=== PATIENT | male | born 1990 | race Caucasian/White ===

== ENCOUNTER 2016-08-13 23:00 | Inpatient (IN) | payer OTHER ==
--- NOTE | ~2016-08-13 | DS ---
Unit #: [id number] #: [id number] Patient: [facility]AR [id number] [facility] [address] [place] [address] [id number] MR#: [id number] NAME: JESSICA SALDIVAR ROOM: [facility] Age: 25 Sex: M Admission Date: 08/14/2016 : 1990 Discharge Date: 08/18/2016 Attending Physician: Irineo Soni M.D. Primary Care Physician: Primary Care Physician No DISCHARGE SUMMARY REASON FOR ADMISSION Mr. Saldivar is a 25-year-old single white male who is a resident of [place], [place] and was self-referred to the hospital on voluntary basis. HISTORY OF PRESENT ILLNESS Please see initial psychiatric evaluation. PAST PSYCHIATRIC HISTORY Please see initial psychiatric evaluation. PAST MEDICAL HISTORY Please see initial psychiatric evaluation. HOSPITAL COURSE The patient was admitted to the adult psychiatric unit at [facility] reuben Drake and was oriented to the hospital environment. Routine p.r.n. medications were initiated and he was started back on his home medications and the Effexor and BuSpar were initiated to help with depression and anxiety and was closely monitored. He was taking the medications regularly and was tolerating them fairly well and was able to show a decent and therapeutic response with improvement in depression and anxiety and was willing to continue treatment on outpatient basis and was denying suicidal ideations, intent or plan and as such it was decided that she will be discharged home. Will continue treatment on outpatient basis. DISCHARGE DIAGNOSES PSYCHIATRIC: 1. Major depressive disorder, recurrent, moderate, without psychotic features. 2. Generalized anxiety disorder. MEDICAL: Diabetes mellitus. STRESSORS: Moderate psychosocial stressors. DISCHARGE MEDICATIONS 1. Effexor XR 75 mg daily for depression. 2. BuSpar 10 mg b.i.d. for anxiety. CONDITION AT DISCHARGE Stable. Unit #: [id number] #: [id number] Patient: JESSICA SALDIVAR PROGNOSIS Fair. Dictated by... Flako Bray/pee TD: 08/18/2016 16:37 JOB #: [id number] DISCHARGE SUMMARY Page 1 of 1 X Irineo Soni MD X DISCHARGE SUMMARY
--- NOTE | ~2016-08-13 | HP ---
Unit #: [id number] #: [id number] Patient: JESSICA PERES [id number] [place] [address] [id number] MR#: [id number] NAME: JESSICA PERES ROOM: [facility] Age: 25 Sex: M Admission Date: 08/14/2016 : 1990 Attending Physician: Irineo Soni M.D. Admitting Physician: Irineo Soni M.D. Primary Care Physician: Primary Care Physician No HISTORY AND PHYSICAL HISTORY OF PRESENT ILLNESS The patient is a 25-year-old male, admitted to [address] [place] [address] on 08/14/2016, for suicidal ideations. PAST MEDICAL HISTORY 1. Type 1 diabetes. 2. Diabetic neuropathy. PAST SURGICAL HISTORY The patient denies. SOCIAL HISTORY He has a history of alcohol and heroin use but denies any now. He is unemployed and homeless. He smokes [id number] cigarettes per day and uses marijuana on a daily basis for his diabetic neuropathy. FAMILY MEDICAL HISTORY Noncontributory. ALLERGIES No known drug allergies. CURRENT MEDICATIONS Include: 1. Levemir 2. Humulin 3. Gabapentin REVIEW OF SYSTEMS CONSTITUTIONAL: No fever or chills. HEENT: Denies any sore throat, ear pain or runny nose. CARDIOVASCULAR: Denies chest pain, irregular heart rhythm or palpitations. CHEST: Denies shortness of breath or cough. No hemoptysis. GASTROINTESTINAL: Denies nausea, vomiting, diarrhea or chronic constipation. ENDOCRINE: Denies history of increased thirst or urination. No recent significant weight loss or gain. GENITOURINARY: Denies dysuria, frequency, or hematuria. SKIN: Denies any rashes. HEMATOLOGIC: Denies history of increased bleeding or bruising. MUSCULOSKELETAL: Denies any hot, swollen joints. No generalized muscle pain. NEUROLOGIC: Denies problems with vision or speech. No frequent, severe Unit #: [id number] #: [id number] Patient: JESSICA PERES headaches. No numbness, tingling or weakness in any extremities. Denies loss of bladder or bowel control. PHYSICAL EXAMINATION GENERAL: Awake, alert, and oriented, in no acute distress. VITAL SIGNS: Temperature 98.6, heart rate 89, respirations 18, blood pressure 130/94. HEIGHT: 5 feet 10 inches. WEIGHT: 155 pounds. SKIN: Warm and dry without rash or lesion. HEENT: Normocephalic. TMs not viewed. Oral and nasal passages clear. Conjunctivae clear. PERRLA. EOMs intact. NECK: Supple without lymphadenopathy or thyromegaly. HEART: Regular rate and rhythm without murmur. LUNGS: Clear. ABDOMEN: Soft, nontender. : Not done. EXTREMITIES: No evidence of cyanosis, clubbing or edema. Moves all without focal deficit. NEUROLOGICAL: Grossly within normal limits. Cranial Nerves: II: Visual donovan are intact. III, IV AND : Extraocular movements are intact. Pupils are equal, round and reactive to light. V: Facial sensation is grossly normal. VII: Facial movements and expression are normal. VIII: Auditory acuity grossly intact. IX, X: Uvula is midline. Phonation is normal. XI: Patient shrugs shoulders and turns head normally. XII: Tongue protrudes in the midline. Sensory and Motor Function: Sensory and motor sensation is grossly normal. Motor: moves all extremities well. Coordination: Gait is normal. Deep Tendon Reflexes: Intact. IMPRESSION 1. Psychiatric admission. 2. Type 1 diabetes. 3. Neuropathy. RECOMMENDATIONS Psychiatric, per psychiatrist. MEDICAL No contraindications to participating in facility's activities. MEDICAL PROGNOSIS Fair. MEDICAL CONDITION Stable. Dictated by... Luis Leary/julian TD: 08/15/2016 05:15 JOB #: [id number] Unit #: [id number] #: [id number] Patient: JESSICA PERES HISTORY AND PHYSICAL Page 1 of 1 X HEIDI RAMSEY APRN X HISTORY AND PHYSICAL
--- NOTE | ~2016-08-13 | PA ---
Unit #: [id number] #: [id number] Patient: JESSICA SALDIVAR [id number] [facility] [address] [place] [address] [id number] MR#: [id number] NAME: JESSICA SALDIVAR ROOM: [facility] Age: 25 Sex: M Admission Date: 08/14/2016 : 1990 Date of Assessment: 08/14/2016 Attending Physician: Irineo Soni M.D. Admitting Physician: Irineo Soni M.D. Primary Care Physician: Primary Care Physician No PSYCHIATRIC ASSESSMENT DATE OF SERVICE 08/14/2016. IDENTIFYING DATA Mr. Saldivar is a 25-year-old single white male, who is a resident of [place], [place], and was self-referred to the hospital on a voluntary basis. CHIEF COMPLAINT "Depression and wanting to overdose on heroin." HISTORY OF PRESENT ILLNESS Mr. Saldivar is a 25-year-old white male with dual diagnosis of mood disorder, who was self-referred to the hospital reporting increasing depression, anxiety, feelings of hopelessness and helplessness, and suicidal ideations with a plan to overdose on heroin and reports that he left on his own on 08/05/2016 without his girlfriend or his children. He reports that he left due to depression and stress and has a history of alcohol abuse and his last drink was a couple of weeks ago and drinks a couple of beers and reports he has a history of heroin abuse. He reports that he was using half a gram of IV heroin on a daily basis and he has not used heroin in a year and a half and reports that he smoked or snorted half a gram of meth on a daily basis and reports last use was about a year and a half ago. However, he reports that he has been prescribed medical marijuana for diabetic neuropathy. He does report increasing depression, anxiety, irritability, feelings of hopelessness and helplessness, and suicidal ideations, and as such, a recommendation for inpatient level of care for safety and stabilization was made and the patient was transferred to us. SUBSTANCE ABUSE HISTORY The patient reports a history of experimentation and abuse of alcohol, cannabis, opioids, and methamphetamine, though he reports that he has not been using drugs for quite some time, though he did report some drinking, a couple of beers a couple of weeks ago. PAST PSYCHIATRIC HISTORY The patient has had a history of psychiatric treatment in the past, and review of the medical records indicate currently he is not active in any treatment program, is not seeing a psychiatrist, and is not taking any psychotropic medications. PAST MEDICAL HISTORY Unit #: [id number] #: [id number] Patient: JESSICA SALDIVAR Insulin-dependent diabetes mellitus. ALLERGIES No known medication allergies. PERSONAL AND SOCIAL HISTORY A 25-year-old white male, who reports that he is single, unemployed, essentially homeless and has poor social support system. MENTAL STATUS EXAMINATION Young white male, who was casually dressed with fair personal hygiene, appears to be in no acute distress or discomfort. He was awake and alert on interaction with intact orientation to time, place, and person. His mood was anxious and depressed with a congruent affect. His speech was slow and restricted in content. His thought processes were disorganized with some looseness of associations and flight of ideas and suicidal ideations. His insight and judgment remain significantly impaired. DIAGNOSTIC IMPRESSION Psychiatric: Major depressive disorder, recurrent, moderate, without psychotic features and generalized anxiety disorder. Medical: None. Stressors: Moderate psychosocial stressors. TREATMENT PLAN 1. The patient has presented with a history of mood disorder and has been decompensating and will need inpatient hospitalization for safety and stabilization. We will start him back on his home medications and we will adjust the medications and monitor response. 2. Supportive therapy was provided to the patient. 3. Safe, structured, and nourishing environment will be provided. ESTIMATED LENGTH OF STAY 5 to 7 days. ABILITY TO HELP SELF Limited. WILLINGNESS TO HELP SELF The patient appears to be willing to help self. STRENGTHS 1. Communicative. 2. Cooperative. PROBLEMS 1. Chronic dysphoric symptoms. 2. Poor social support system. DISCHARGE CRITERIA This will be contingent upon the patient's ability to show resolution of his depression and anxiety as well as his ability to stay safe to himself, particularly after discharge from the hospital. Dictated by... Irineo Soni M.D. Unit #: [id number] #: [id number] Patient: JESSICA SALDIVAR IAA/modl TD: 08/14/2016 14:05 JOB #: [id number] PSYCHIATRIC ASSESSMENT Page 1 of 1 X Irineo Soni MD PSYCHIATRIC ASSESSMENT
--- NOTE | ~2016-08-13 | PN ---
Unit #: [id number] #: [id number] Patient: JESSICA SALDIVAR [id number] [facility] [address] [place] [address] [id number] I MR#: [id number] NAME: JESSICA SALDIVAR ROOM: [facility] Age: 25 Sex: M Admission Date: 08/14/2016 : 1990 Attending Physician: Irineo Soni M.D. Admitting Physician: Irineo Soni M.D. Primary Care Physician: Primary Care Physician Daxa SOLORZANO NOTES DATE August 16, 2016 DISCUSSION Mr. Saldivar is a 25-year-old white male, who was seen today and chart was reviewed and the case was discussed with the staff. He has been anxious, withdrawn, and rather seclusive to himself. Meanwhile, he has been cooperative with the treatment recommendations and he has been taking the medications, and tolerating them fairly well, with no reported side effects. MENTAL STATUS EXAMINATION Young white male, who was casually dressed with fair personal hygiene and appears to be in no acute distress or discomfort. He was awake and alert with intact orientation. His mood was anxious with a congruent affect. He denies any suicidal or homicidal ideations. His insight and judgment remain slightly impaired. TREATMENT PLAN 1. We will continue him on his current medications and treatment protocol, and will monitor his response to the medications, and make further adjustments as needed. 2. We will continue to followup. Dictated by... Flako Bray/julian TD: 08/17/2016 08:55 JOB #: [id number] Unit #: [id number] #: [id number] Patient: JESSICA SALDIVAR PROGRESS NOTES Page 1 of 1 X Irineo Soni MD PROGRESS NOTE
--- NOTE | ~2016-08-13 | PN ---
Unit #: [id number] #: [id number] Patient: JESSICA SALDIVAR [id number] [facility] [address] [place] [address] [id number] MR#: [id number] NAME: JESSICA SALDIVAR ROOM: [facility] Age: 25 Sex: M Admission Date: 08/14/2016 : 1990 Attending Physician: Irineo Soni M.D. Admitting Physician: Irineo Soni M.D. Primary Care Physician: Primary Care Physician Daxa RIOS PROGRESS NOTES DATE 08/15/2016 DISCUSSION Mr. Saldivar is a 25-year-old, white male who was seen today and chart was reviewed and case was discussed with the staff. He has been anxious, withdrawn, depressed and rather seclusive to himself though he has been able to take the medication which he initiated yesterday without any tolerability issues. MENTAL STATUS EXAM Young white male who was casually dressed with fair personal hygiene, appears to be in no acute distress or discomfort. He was awake and alert on interaction with intact orientation. His mood was anxious with congruent affect. He denies any suicidal or homicidal ideation. His insight and judgement remains slightly impaired. TREATMENT PLAN 1. We will continue him on his current medications and treatment protocol. We will monitor his response to the medication and make further adjustments as needed. 2. We will continue to follow up. Dictated by... Flako Bray/hossein TD: 08/16/2016 04:41 JOB #: [id number] Unit #: [id number] #: [id number] Patient: JESSICA SALDIVAR PROGRESS NOTES Page 1 of 1 X Irineo Snoi MD PROGRESS NOTE
--- NOTE | ~2016-08-13 | PN ---
Unit #: [id number] #: [id number] Patient: JESSICA SALDIVAR [id number] [facility] [address] [place] [address] [id number] I MR#: [id number] NAME: JESSICA SALDIVAR [facility] Age: 25 Sex: M Admission Date: 08/14/2016 : 1990 Attending Physician: Irineo Soni M.D. Admitting Physician: Irineo Soni M.D. Primary Care Physician: Primary Care Physician Daxa SOLORZANO NOTES DATE OF SERVICE: 08/17/2016 SUBJECTIVE Mr. Saldivar is a 25-year-old white male who was seen today and chart was reviewed and case was discussed with the staff. He has been anxious, withdrawn, and rather seclusive to himself. Meanwhile, he has been cooperative with treatment recommendations as he has been taking the medications and tolerating them fairly well with no reported side effects. MENTAL STATUS EXAMINATION Young white male who was casually dressed with fair personal hygiene, appears to be in no acute distress or discomfort. He was awake and alert on interaction with intact orientation. His mood was anxious with a congruent affect. He denies any suicidal or homicidal ideations. His insight and judgment remain slightly impaired. TREATMENT PLAN 1. We will continue him on his current medications and treatment protocol. We will monitor his response to the medications and make further adjustments as needed. 2. We will continue to follow up. Dictated by... Flako Bray/peterl TD: 08/18/2016 03:41 JOB #: [id number] [facility] PROGRESS NOTES Page 1 of 1 X Irineo Soni MD PROGRESS NOTE
[2016-08-15 09:50] LABS: URINE APPEARANCE CLEAR; URINE BILIRUBIN NEG (NEG); URINE BLOOD NEG (NEG); URINE COLOR YELLOW; URINE GLUCOSE >1000 MG/DL (NEG); URINE KETONE NEG (NEG); URINE LEUKOCYTE ESTERASE NEG (NEG); URINE NITRATE NEG (NEG); URINE PROTEIN NEG (NEG); URINE SPECIFIC GRAVITY 1.035 (1.003-1.035); URINE UROBILINOGEN 0.2 MG/DL (NEG)
[2016-08-15 10:09] LABS: AMPHETAMINE NEG (NEG); BARBITURATES NEG (NEG); BENZODIAZEPINES NEG (NEG); COCAINE NEG (NEG); MARIJUANA POS (NEG); OPIATES NEG (NEG); TRICYCLIC ANTIDEPRESSANTS POS (NEG); U METHADONE NEG (NEG)
[2016-08-15 10:14] LABS: BASOPHIL# 0.1 X10e3 (0-0.3); BASOPHIL% 0.7 % (0-2.5); EOSINOPHIL# 0.2 X10e3 (0-0.7); EOSINOPHIL% 2.6 % (0.0-7.0); HEMATOCRIT 47.3 % (38.0-50.0); HEMOGLOBIN 15.9 gm/dL (13.0-16.0); LYMPHOCYTE# 2.9 X10e3 (1.0-3.5); LYMPHOCYTE% 36.9 % (17.0-45.0); MEAN CELL VOLUME 91.1 FL (83-96); MEAN CORPUSCULAR HEMOGLOBIN 30.6 PG (28-34); MEAN CORPUSCULAR HGB CONC 33.6 g/dL (30-36); MEAN PLATELET VOLUME 10.3 FL (6.5-11.5); MONOCYTE# 0.4 X10e3 (0-1.0); MONOCYTE% 5.5 % (3.0-12.0); NEUTROPHIL# 4.3 X10e3 (1.5-7.1); NEUTROPHIL% 54.3 % (40-75); PLATELET COUNT 177 X10e3 (140-420); RED BLOOD COUNT 5.19 X10e (3.90-5.60); RED CELL DISTRIBUTION WIDTH 12.8 % (11.0-15.5); WHITE BLOOD COUNT 7.9 X10e3 (4.0-10.5)
[2016-08-15 10:25] LABS: DIFF IND NO
[2016-08-15 10:27] LABS: ALBUMIN SERUM 4.1 g/dL (3.5-5.0); BILIRUBIN,TOTAL 0.5 mg/dL (0.2-2.0); BUN/CREATININE RATIO 15.55; CALCIUM SERUM 9.5 mg/dL (8.4-10.2); CREATININE SERUM 0.9 mg/dL (0.6-1.4); GLOM FILT RATE Estimated 118.3 mL/min (>60); POTASSIUM 4.5 mmol/L (3.5-5.1); PROTEIN TOTAL SERUM 6.8 g/dL (6.0-8.3)
== END 2016-08-18 11:10 | disposition home or self-care (01) | DRG 885 ==
LOC: P2L 08-14 08:03
PROVIDERS: Psychiatry & Neurology Psychiatry
DX: F33.1 Major depressive disorder, recurrent, moderate (principal); E10.40 Type 1 diabetes mellitus with diabetic neuropathy, unspecified; R45.851 Suicidal ideations; F41.1 Generalized anxiety disorder; Z79.4 Long term (current) use of insulin; F17.210 Nicotine dependence, cigarettes, uncomplicated
CPT/HCPCS: 80053; 80307; 81003; 82947; 85025